=== PATIENT | male | born 1950 | race Caucasian/White ===

== ENCOUNTER 2025-02-01 20:07 | Emergency (ER) | payer MEDICARE ==
[~2025-02-01] VITALS: Ht 177.8 cm; Wt 74.8 kg
[2025-02-01] MEDS ORDERED: CEPHALEXIN 500 MG CAP PO ONE (20:35)
[2025-02-01] MEDS ORDERED: CEPHALEXIN500 M1 PO (20:37)
[2025-02-01] MEDS ORDERED: Bactroban Oint22 GM T (20:37)
== END 2025-02-01 20:42 | disposition home or self-care (01) ==
LOC: ED 20:07
DX: L03.032 Cellulitis of left toe (principal)